=== PATIENT | male | born 1960 | race Caucasian/White ===

== ENCOUNTER 2016-08-07 01:39 | Emergency (ER) | payer MEDICARE, OTHER ==
[~2016-08-07] VITALS: Ht 180.3 cm; Wt 96.8 kg
[~2016-08-07 01:39] MED LIST: IBUP-1542 PO
[2016-08-07 02:00] VITALS: Ht 180.3 cm; Wt 96.8 kg
--- NOTE | 2016-08-07 05:45 | RADRPT ---
PROCEDURE: XR Ankle. CLINICAL INDICATION: Right ankle pain following injury TECHNIQUE: 3 views of the right ankle are available for review COMPARISON: None available FINDINGS: The osseous structures demonstrate normal alignment and mineralization. No acute fracture or disloc ation is seen. The ankle mortise is intact. No periostitis or osteochondral lesion is identified. There is mild cortical irregularity along the posterior margin of the talus. There is a large poste rior calcaneal osteophyte. There is lateral malleolar soft tissue edema. IMPRESSION: 1. Limited evaluation secondary to suboptimal patient positioning. 2. Lateral malleolar soft tissue edema. No acute fracture seen. 3. Cortical irregularity along the posterior margin of the talus, may reflect degenerative changes of the sequela of prior trauma. 4. Large posterior calcaneal osteophyte. RPTAT: HH .Sue Rios MD, Date Time Electronically viewed and signed by .Sue Rios MD, on 08/07/2016 05:45 .G/
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
== END 2016-08-07 06:21 | disposition left against medical advice (07) ==
LOC: FTE 01:39 → E/R 06:21
DX: S93.401A Sprain of unspecified ligament of right ankle, initial encounter (principal); V03.10XA Pedestrian on foot injured in collision with car, pick-up truck or van in traffic accident, initial encounter; Z87.891 Personal history of nicotine dependence